=== PATIENT | male | born 1960 | race Hispanic/Latino ===

== ENCOUNTER 2024-07-15 09:26 | Inpatient (IN) | payer SELFPAY ==
[2024-07-15] MEDS ORDERED: ATORVASTATIN 20 MG TAB ONE (09:55)
[2024-07-15] MEDS ORDERED: ONDANSETRON 4 MG/2 ML VIAL ONE (09:55)
[2024-07-15] MEDS ORDERED: ASPIRIN 81 MG CHEWABLE TABLET ONE (09:55)
[2024-07-15] MEDS ORDERED: METOPROLOL TAR 25 MG TAB ONE (09:55)
[2024-07-15] MEDS ORDERED: MORPHINE 4 MG/ML SYR ONE (09:56)
[2024-07-15] MEDS ORDERED: FAMOTIDINE 20 MG/2 ML VIAL IV ONE (09:57)
[2024-07-15] MEDS ORDERED: ENOXAPARIN 100 MG/ML SYR SQ ONE (09:57)
[2024-07-15] MEDS ORDERED: NA CHLORIDE 0.9% 500 ML ONE (09:57)
[2024-07-15 10:06] LABS: PT Prothrombin Time 12.5 SECONDS (10-13.0); Protime INR 1.1
[2024-07-15 10:07] LABS: Absolute Eosinophils 0.1 K/uL (0-0.5); Absolute Lymphocytes (CBC) 1.2 K/uL (0.7-4.9); Absolute Monocytes 0.8 K/uL (0.1-1.3); Basophils % 0.5 % (0-1.3); Eosinophils % 0.6 % (0-4.4); Hematocrit 40.8 % (39.6-49.0); Hemoglobin 14.7 g/dL (13.6-17.9); Lymphocytes % 12.1 % (15.3-44.8); MCH 32.3 pg (27.0-35.0); MCHC 35.9 g/dL (32.0-36.0); MCV 90.1 fL (80-100); Monocytes % 7.5 % (3.3-12.3); Neutrophils % 79.3 % (41.7-73.7); Platelets 252 thou/uL (152-406); RBC Red Blood Cell Count 4.53 M/uL (4.33-5.43); Red Cell Distribution Width 12.3 % (12.1-15.2)
[2024-07-15 10:52] LABS: Albumin 3.8 g/dL (3.4-5.0); Albumin/Globulin Ratio 0.8 (1.1-1.8); Anion Gap 12.5 mEq/L (5.0-15.0); Bilirubin Direct 0.2 mg/dL (0-0.2); Bilirubin Indirect, Calculated 0.7 mg/dL (0.2-0.8); Bilirubin Total 0.9 mg/dL (0.2-1.0); Globulin 4.8 g/dL (2.3-3.5); Magnesium 2.1 mg/dL (1.6-2.4); Potassium 3.5 mEq/L (3.5-5.1); Protein, Total 8.6 g/dL (6.4-8.2); Troponin High Sensitivity 4.7 pg/mL (<58.9)
--- NOTE | 2024-07-15 11:35 | EDPHYS ---
Physician Documentation [facility] Name: Timothy Herrera Age: 63 yrs Sex: Male : 1960 Arrival Date: 07/15/2024 Time: 09:26 Bed 7 Private MD: LAURA Physician Yevgeniy Francisco HPI: 07/15 09:51 This 63 yrs old Male presents to ER via Ambulatory with complaints of High roma Blood Pressure, Chest Pain. 09:51 The patient has elevated blood pressure and discovered this at home. Onset: The roma symptoms/episode began/occurred suddenly. Modifying factors: The symptoms are aggravated by activity, The symptoms are alleviated by remaining still. Associated signs and symptoms: The patient has no apparent associated signs or symptoms. The patient has not experienced similar symptoms in the past. Historical: - Allergies: :44 PENICILLINS; ss - Home Meds: :44 None [Active]; ss - PMHx: :44 None; ss - PSHx: 09:44 Hernia repair; ss - Infectious Disease History:: Denies. - Social history:: Smoking status: Patient denies any tobacco usage or history of. ROS: 09:51 Constitutional: Negative for fever, chills, and weight loss, Eyes: Negative for injury, roma pain, redness, and discharge, ENT: Negative for injury, pain, and discharge, Neck: Negative for injury, pain, and swelling, Respiratory: Negative for shortness of breath, cough, wheezing, and pleuritic chest pain, Abdomen/GI: Negative for abdominal pain, nausea, vomiting, diarrhea, and constipation, Back: Negative for injury and pain, : Negative for injury, bleeding, discharge, and swelling, MS/Extremity: Negative for injury and deformity, Skin: Negative for injury, rash, and discoloration, Neuro: Negative for headache, weakness, numbness, tingling, and seizure, Psych: Negative for depression, anxiety, suicide ideation, homicidal ideation, and hallucinations, Allergy/Immunology: Negative for hives, rash, and allergies, Endocrine: Negative for neck swelling, polydipsia, polyuria, polyphagia, and marked weight changes, Hematologic/Lymphatic: Negative for swollen nodes, abnormal bleeding, and unusual bruising, 09:51 Cardiovascular: Positive for chest pain, of the chest, Exam: 09:51 Constitutional: This is a well developed, well nourished patient who is awake, alert, roma and in no acute distress. Head/Face: Normocephalic, atraumatic. Eyes: Pupils equal round and reactive to light, extra-ocular motions intact. Lids and lashes normal. Conjunctiva and sclera are non-icteric and not injected. Cornea within normal limits. Periorbital areas with no swelling, redness, or edema. ENT: Nares patent. No nasal discharge, no septal abnormalities noted. Tympanic membranes are normal and external auditory canals are clear. Oropharynx with no redness, swelling, or masses, exudates, or evidence of obstruction, uvula midline. Mucous membranes moist. Neck: Trachea midline, no thyromegaly or masses palpated, and no cervical lymphadenopathy. Supple, full range of motion without nuchal rigidity, or vertebral point tenderness. No Meningismus. Chest/axilla: Normal chest wall appearance and motion. Nontender with no deformity. No lesions are appreciated. Cardiovascular: Regular rate and rhythm with a normal S1 and S2. No gallops, murmurs, or rubs. Normal PMI, no JVD. No pulse deficits. Respiratory: Lungs have equal breath sounds bilaterally, clear to auscultation and percussion. No rales, rhonchi or wheezes noted. No increased work of breathing, no retractions or nasal flaring. Abdomen/GI: Soft, non-tender, with normal bowel sounds. No distension or tympany. No guarding or rebound. No evidence of tenderness throughout. Back: No spinal tenderness. No costovertebral tenderness. Full range of motion. Skin: Warm, dry with normal turgor. Normal color with no rashes, no lesions, and no evidence of cellulitis. MS/ Extremity: Pulses equal, no cyanosis. Neurovascular intact. Full, normal range of motion., bilateral aka Neuro: Awake and alert, GCS 15, oriented to person, place, time, and situation. Cranial nerves II-XII grossly intact. Motor strength 5/5 in all extremities. Sensory grossly intact. Cerebellar exam normal. Normal gait. Psych: Awake, alert, with orientation to person, place and time. Behavior, mood, and affect are within normal limits. 09:51 ECG was reviewed by the Attending Physician. 09:51 Musculoskeletal/extremity: ROM: no acute changes, Compartment Syndrome exam of affected extremity: is normal. DVT Exam: No signs of deep vein thrombosis. no pain, no swelling, no tenderness, negative Homans' sign noted on exam, no appreciated bluish discoloration, no erythema, no increased warmth, Vital Signs: 09:42 BP 157 / 91; Pulse 71; Resp 16; Pulse Ox 98% ; Weight 70.31 kg (M); Height 5 ft. 9 in. aa5 ; Pain 5/10; 09:50 Temp 97.8(TE); aa5 10:35 BP 167 / 91; Pulse 83; Resp 16 S; Pulse Ox 99% on R/A; aa5 09:42 Body Mass Index 22.89 (70.31 kg, 175.26 cm) aa5 09:42 Pain Scale: Adult aa5 [place] Coma Score: 09:51 Eye Response: spontaneous(4). Motor Response: obeys commands(6). Verbal Response: roma oriented(5). Total: 15. MDM: 09:31 Medical Screening Exam initiated roma 09:54 HEART Score: History: Moderately Suspicious (1), ECG: Non specific repolarization roma disturbance / LBTB / PM (1), Age: > 45 and < 65 years (1), Risk Factors: 1 or 2 risk factors (1), [Hypertension] [+ Family HX] Troponin: < or = 1 x Normal Limit (0). The patient was given aspirin in the Emergency Department. NORMA Risk Score: 1 - Recent [<24hrs] Severe Angina, TOTAL SCORE = 1. Data reviewed: vital signs, nurses notes, lab test result(s), EKG, radiologic studies, plain films. Consideration of Admission/Observation Patient was admitted/placed on observation. Escalation of care including admission/observation considered. I considered the following discharge prescriptions or medication management in the emergency department Medications were administered in the Emergency Department. See MAR. Independent interpretation of the following test(s) in the Emergency Department EKG: See my EKG interpretation above. 07/15 09:32 Order name: Basic Metabolic Panel; Complete Time: 11:11 [facility] 07/15 09:32 Order name: CBC with Diff; Complete Time: 10:28 [facility] 07/15 09:32 Order name: LFT's; Complete Time: 11:11 [facility] 07/15 09:32 Order name: Magnesium; Complete Time: 11:11 [facility] 07/15 09:32 Order name: NT PRO-BNP; Complete Time: 11:11 [facility] 07/15 09:32 Order name: PT-INR; Complete Time: 10:28 [facility] 07/15 09:32 Order name: Troponin HS; Complete Time: 11:11 [facility] 07/15 09:32 Order name: Lipase; Complete Time: 11:11 [facility] 07/15 09:32 Order name: Urinalysis w/ reflexes [facility] 07/15 10:00 Order name: Lipid Profile; Complete Time: 11:11 EDMS 07/15 12:08 Order name: Basic Metabolic Panel EDMS 07/15 12:08 Order name: Basic Metabolic Panel EDMS 07/15 12:08 Order name: Basic Metabolic Panel EDMS 07/15 12:08 Order name: CBC with Automated Diff EDMS 07/15 12:08 Order name: CBC with Automated Diff EDMS 07/15 12:08 Order name: CBC with Automated Diff EDMS 07/15 12:08 Order name: Troponin High Sensitivity EDMS 07/15 12:08 Order name: Troponin High Sensitivity EDMS 07/15 12:08 Order name: Troponin High Sensitivity EDMS 07/15 09:32 Order name: XRAY Chest (1 view) [facility] 07/15 12:08 Order name: Echo with Doppler EDNE 07/15 09:32 Order name: EKG; Complete Time: 09:33 [facility] 07/15 09:32 Order name: Cardiac monitoring; Complete Time: 09:45 [facility] 07/15 09:32 Order name: EKG - Nurse/Tech; Complete Time: 09:45 [facility] 07/15 09:32 Order name: IV Saline Lock; Complete Time: 10:25 [facility] 07/15 09:32 Order name: Labs collected and sent; Complete Time: 10:25 [facility] 07/15 09:32 Order name: O2 Per Protocol; Complete Time: 09:45 [facility] 07/15 09:32 Order name: O2 Sat Monitoring; Complete Time: 09:45 [facility] EC:51 Rate is 68 beats/min. Rhythm is regular. QRS [place] is Normal. SD interval is normal. QRS roma interval is normal. QT interval is normal. No Q waves. T waves are Normal. No ST changes noted. Clinical impression: NSR w/ Non-specific ST/T Changes and No evidence of ischemia. Interpreted by me. Reviewed by me. Administered Medications: 10:00 Drug: NS 0.9% IV 500 ml IV at bolus once; to be given as a bolus over 30 minutes Route: aa5 IV; Rate: bolus; Site: right antecubital; 10:30 Follow up: IV Status: Completed infusion; IV Intake: 500ml aa5 10:00 Drug: Famotidine IVP 20 mg IVP once; dilute with 10 mL 0.9% NaCl; give over 2 minutes aa5 Route: IVP; Site: right antecubital; 10:10 Follow up: Response: No adverse reaction aa5 10:00 Drug: Enoxaparin Sub-Q 1 mg/kg Sub-Q once Route: Sub-Q; Site: right lower abdomen; aa5 10:35 Follow up: Response: No adverse reaction aa5 10:00 Drug: morphine IVP or IV 2 mg IVP once over 4 mins Route: IVP; Infused Over: 4 mins; aa5 Site: right antecubital; 10:10 Follow up: Response: No adverse reaction aa5 10:00 Drug: morphine IVP or IV 2 mg IVP once over 4 mins Route: IVP; Infused Over: 4 mins; aa5 Site: right antecubital; 10:10 Follow up: Response: No adverse reaction aa5 10:00 Drug: Ondansetron IVP 4 mg IVP once; over 2 minutes Route: IVP; Site: right antecubital;aa5 10:10 Follow up: Response: No adverse reaction aa5 10:00 Drug: Atorvastatin PO 20 mg PO once Route: PO; aa5 10:46 Follow up: Response: No adverse reaction aa5 10:24 Not Given (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, awaree): aspirinchewable tablet 324 aa5 mg PO once; 81 mg tablets x 4 10:24 Not Given (HR currently 62, aware.): [id number] mg PO once aa5 Disposition Summary: 07/15/24 11:35 Hospitalization Ordered Notes: Hospitalization Status: Observation roma Location: Telemetry/MedSurg (observation) roma Condition: Fair roma Problem: new roma Symptoms: have improved roma Bed/Room Type: Standard roma Provider: Hernando Leal(07/15/24 11:41) db Room Assignment: [facility](07/15/24 16:09) ty Diagnosis - Essential (primary) hypertension roma - Chest pain, unspecified roma Forms: - Medication Reconciliation Form roma - SBAR form roma - Leadership Thank You Letter roma Signatures: Dispatcher [employer] EDMS Yevgeniy Francisco MD MD cha Calderon, Audri RN RN aa5 Alena Saenz RN RN ss Melody Knapp RN RN db Berhane Velazquez Corrections: (The following items were deleted from the chart) 10:00 09:49 LIPID PROFILE+C.LAB.BRZ ordered. [facility] EDNE 11:41 11:35 Ulisses Donohue cha 16:09 11:35 roma moreno
--- NOTE | 2024-07-15 11:35 | ER ---
Nurse's Notes [facility] Name: Timothy Herrera Age: 63 yrs Sex: Male : 1960 Arrival Date: 07/15/2024 Time: 09:26 Bed 7 Private MD: Diagnosis: Essential (primary) hypertension;Chest pain, unspecified Presentation: 07/15 09:42 Chief complaint: Patient states: Chest pressure that began this morning. Sent by urgent ss care for further evaluation. EKG completed at urgent care was reportedly, "normal" as well as BGL. Pt was also given 324 ASA just prior to arrival. Coronavirus screen: Client denies travel out of the [place] in the last 14 days. Ebola Screen: Patient denies exposure to infectious person. Patient denies travel to an Ebola-affected area in the 21 days before illness onset. Initial Sepsis Screen: Does the patient meet any 2 criteria? No. Patient's initial sepsis screen is negative. Does the patient have a suspected source of infection? No. Patient's initial sepsis screen is negative. Risk Assessment: Do you want to hurt yourself or someone else? Patient reports no desire to harm self or others. Onset of symptoms was July 15, 2024. 09:42 Method Of Arrival: Ambulatory 09:42 Acuity: DIVYA 3 09:42 Note reported blood pressure at urgent care was 242/141. ss Historical: - Allergies: 09:44 PENICILLINS; ss - Home Meds: 09:44 None [Active]; ss - PMHx: 09:44 None; ss - PSHx: 09:44 Hernia repair; ss - Infectious Disease History:: Denies. - Social history:: Smoking status: Patient denies any tobacco usage or history of. Screenin:50 [facility] ED Fall Risk Assessment (Adult) History of falling in the last 3 months, aa5 including since admission No falls in past 3 months (0 pts) Confusion or Disorientation No (0 pts) Intoxicated or Sedated No (0 pts) Impaired Gait No (0 pts) Mobility Assist Device Used No (0 pt) Altered Elimination No (0 pt) Score/Fall Risk Level 0 - 2 = Low Risk Oriented to surroundings, Maintained a safe environment, Educated pt \\T\\ family on fall prevention, incl call for assistance when getting out of bed, Assessed \\T\\ reinforced patient's understanding of fall precautions. Abuse screen: Denies threats or abuse. Nutritional screening: No deficits noted. Tuberculosis screening: No symptoms or risk factors identified. Assessment: 09:50 General: Appears uncomfortable, Behavior is calm, cooperative. Pain: Complains of pain aa5 in chest Pain does not radiate. Pain currently is 5 out of 10 on a pain scale. Quality of pain is described as pressure, Pain began today Is continuous. Neuro: Level of Consciousness is awake, alert, obeys commands, Oriented to person, place, time, situation. Cardiovascular: Heart tones S1 S2 present Rhythm is regular. Respiratory: Airway is patent Respiratory effort is even, unlabored, Respiratory pattern is regular, symmetrical, Breath sounds are clear bilaterally. GI: Abdomen is non-distended, Bowel sounds present X 4 quads. Abd is soft and non tender X 4 quads. Patient currently denies diarrhea, nausea, vomiting. : No signs and/or symptoms were reported regarding the genitourinary system. EENT: No signs and/or symptoms were reported regarding the EENT system. Derm: Skin is pink, warm \\T\\ dry. Musculoskeletal: Range of motion: intact in all extremities. 10:35 Reassessment: Patient is alert, oriented x 3, equal unlabored respirations, skin aa5 warm/dry/pink. Patient states feeling better. 10:53 Reassessment: x-ray at bedside . aa5 Vital Signs: 09:42 BP 157 / 91; Pulse 71; Resp 16; Pulse Ox 98% ; Weight 70.31 kg (M); Height 5 ft. 9 in. aa5 ; Pain 5/10; 09:50 Temp 97.8(TE); aa5 10:35 BP 167 / 91; Pulse 83; Resp 16 S; Pulse Ox 99% on R/A; aa5 09:42 Body Mass Index 22.89 (70.31 kg, 175.26 cm) aa5 09:42 Pain Scale: Adult aa5 [place] Coma Score: 09:51 Eye Response: spontaneous(4). Motor Response: obeys commands(6). Verbal Response: roma oriented(5). Total: 15. ED Course: 09:31 Patient arrived in ED. im 09:31 Yevgeniy Francisco MD is Attending Physician. roma 09:38 Miller, Myah, RN is Primary Nurse. aa5 09:44 Triage completed. ss 09:44 Arm band placed on right wrist. ss 09:50 Patient has correct armband on for positive identification. Placed in gown. Bed in low aa5 position. Call light in reach. Side rails up X 1. Adult w/ patient. Client placed on continuous cardiac and pulse oximetry monitoring. NIBP monitoring applied. personal support worker on. Pulse ox on. NIBP on. 09:55 Inserted saline lock: 20 gauge in right antecubital area, using aseptic technique. aa5 Flushed with 10 mL NS. 10:42 Patient maintains SpO2 saturation greater than 95% on room air. aa5 10:46 No provider procedures requiring assistance completed. aa5 10:59 XRAY Chest (1 view) In Process Unspecified. EDMS 11:34 Ulisses Donohue MD is Hospitalizing Provider. roma 11:41 Hernando Leal is Hospitalizing Provider. db 17:59 Provided Education on: ADMISSION INSTRUCTIONS. dd2 17:59 Patient admitted, IV remains in place. dd2 Administered Medications: 10:00 Drug: NS 0.9% IV 500 ml IV at bolus once; to be given as a bolus over 30 minutes Route: aa5 IV; Rate: bolus; Site: right antecubital; 10:30 Follow up: IV Status: Completed infusion; IV Intake: 500ml aa5 10:00 Drug: Famotidine IVP 20 mg IVP once; dilute with 10 mL 0.9% NaCl; give over 2 minutes aa5 Route: IVP; Site: right antecubital; 10:10 Follow up: Response: No adverse reaction aa5 10:00 Drug: Enoxaparin Sub-Q 1 mg/kg Sub-Q once Route: Sub-Q; Site: right lower abdomen; aa5 10:35 Follow up: Response: No adverse reaction aa5 10:00 Drug: morphine IVP or IV 2 mg IVP once over 4 mins Route: IVP; Infused Over: 4 mins; aa5 Site: right antecubital; 10:10 Follow up: Response: No adverse reaction aa5 10:00 Drug: morphine IVP or IV 2 mg IVP once over 4 mins Route: IVP; Infused Over: 4 mins; aa5 Site: right antecubital; 10:10 Follow up: Response: No adverse reaction aa5 10:00 Drug: Ondansetron IVP 4 mg IVP once; over 2 minutes Route: IVP; Site: right antecubital;aa5 10:10 Follow up: Response: No adverse reaction aa5 10:00 Drug: Atorvastatin PO 20 mg PO once Route: PO; aa5 10:46 Follow up: Response: No adverse reaction aa5 10:24 Not Given (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 aa5 Intake: 10:30 IV: 500ml; Total: 500ml. aa5 Outcome: 11:35 Decision to Hospitalize by Provider. [facility] 13:00 Admitted to ER Hold. Please see [facility] for further documentation. aa5 13:00 Instructed on the need for admit, Demonstrated understanding of instructions, 13:00 Condition: stable aa5 18:00 Patient left the ED. aa5 Signatures: Dispatcher [employer] EDMS Yevgeniy Francisco MD MD cha Calderon, Audri, RN RN aa Alena Saenz RN RN Melody Knapp RN RN Afshan Jackson DIANA, RN RN dd2 Corrections: (The following items were deleted from the chart) 10:47 10:00 Response: No adverse reaction aa5 aa5 15:41 09:42 BP 157 / 91; Pulse 71bpm; Resp 16bpm; Pulse Ox 98%; 92.99 kg; Height 5 ft. 9 in.; aa5 BMI: 30.2; Pain 5/10, Adult; ss 18:57 18:57 IV Status: Completed infusion; IV Intake: 500ml aa5 aa 19:06 17:59 Admitted to ER Hold. Please see [facility] for further documentation. dd2 aa5 19: 17:59 Condition: stable dd2 aa5 19:06 17:59 Instructed on the need for admit, Demonstrated understanding of instructions, dd2 aa5 19:06 18:08 Patient left the ED. aa5 aa
--- NOTE | 2024-07-15 11:41 | RAD REPORT ---
Procedure: Chest Single View HISTORY: Chest pain COMPARISON: none FINDINGS: The lungs appear clear of acute infiltrate. No significant pleural effusion noted. The heart is mildly enlarged. IMPRESSION: No acute abnormality is displayed.
--- NOTE | 2024-07-15 11:52 | EKG ---
Test Date: 2024-07-15 Test Time: 09:43:50 Ophthalmic Medical Technician: BRYANT MEASUREMENT RESULTS: Intervals: Rate: 68 AL: 148 QRSD: 88 QT: 392 QTc: 416 [place]: P: 73 AL: 148 QRS: 72 T: 70 INTERPRETIVE STATEMENTS: Normal sinus rhythm Septal infarct, age undetermined Abnormal ECG No previous ECG available for comparison Electronically Signed On 07-15-24 11:51:43 CDT by Bear Guerrero
[2024-07-15] MEDS ORDERED: ACETAMINOPHEN 325 MG TABLET PO PRN (12:02)
[2024-07-15] MEDS ORDERED: ONDANSETRON 4 MG/2 ML VIAL IV PRN (12:02)
[2024-07-15] MEDS ORDERED: MORPHINE 2 MG/ML SYR IV PRN (12:02)
[2024-07-15 12:15] LABS: Specific Gravity 1.006 (1.005-1.030); Urine Bilirubin NEGATIVE (Negative); Urine Blood Negative (Negative); Urine Clarity Clear (Clear); Urine Color Colorless (Yellow); Urine Glucose NEGATIVE (Negative); Urine Ketones NEGATIVE (Negative); Urine Microscopic Reflex YN NO UMIC; Urine Nitrite NEGATIVE (Negative); Urine Protein NEGATIVE (Negative); Urine Urobilinogen Normal (Normal)
--- NOTE | 2024-07-15 14:38 | P.HP ---
Certification for Inpatient Patient admitted to: Observation With expected LOS: <2 Midnights Patient will require the following post-hospital care: None Practitioner: I am a practitioner with admitting privileges, knowledge of patient current condition, hospital course, and medical plan of care. Services: Services provided to patient in accordance with Admission requirements found in Title 42 Section 412.3 of the Code of Federal Regulations Patient History Date of Service: 07/15/24 Reason for admission: Chest pain History of Present Illness: 63-year-old male with no known past medical history presents emergency department chief complaint of chest pain. He was working and developed pressure-like chest that lasted for about an hour with associated shortness of breath and lightheadedness. He does not routinely see a doctor, is a former smoker for many years. Has never seen a coat operator or had any further cardiac testing performed. Patient was evaluated in the emergency department his labs are significant for initial high sensitive troponin of 4.7 BNP of 91 chest x-ray was negative for acute findings. ED provider wishes to admit under observation for ACS rule out. Allergies Penicillins Allergy (Verified 07/15/24 12:55) UNK - Past Medical/Surgical History -: None -: None Psychosocial/ Personal History: Persian-speaking only - Social History Smoking Status: Former smoker Alcohol use: No CD- Drugs: No Caffeine use: Yes Place of Residence: Home Review of Systems 10-point ROS is otherwise unremarkable Respiratory: Shortness of Breath Cardiovascular: Chest Pain, Light Headedness Physical Examination - Physical Exam General: Alert, In no apparent distress, Oriented x3 HEENT: Atraumatic, PERRLA, EOMI Neck: Supple, 2+ carotid pulse no bruit Respiratory: Clear to auscultation bilaterally, Normal air movement Cardiovascular: Regular rate/rhythm, Normal S1 S2 Gastrointestinal: Normal bowel sounds, No tenderness Musculoskeletal: No tenderness Integumentary: No rashes Neurological: Normal gait, Normal speech, Normal strength at 5/5 x4 extr - Studies Laboratory Data (last 24 hrs) 07/15/24 07/15/24 07/15/24 09:51 09:51 09:51 WBC 10.00 Hgb 14.7 Hct 40.8 Plt Count 252 PT 12.5 INR 1.10 Sodium 133 L Potassium 3.5 BUN 15 Creatinine 0.84 Glucose 106 Magnesium 2.1 Total Bilirubin 0.9 AST 20 ALT 30 Alkaline Phosphatase 79 Triglycerides 141 Cholesterol 206 H HDL Cholesterol 52 Cholesterol/HDL Ratio 3.96 Lipase 39 07/15/24 09:48 WBC Hgb Hct Plt Count PT INR Sodium Potassium BUN Creatinine Glucose Magnesium Total Bilirubin AST ALT Alkaline Phosphatase Triglycerides Cancelled Cholesterol Cancelled HDL Cholesterol Cancelled Cholesterol/HDL Ratio Cancelled Lipase Assessment and Plan - Plan Assessment: Chest pain rule out ACS Plan: Chest pain rule out ACS Cardiology consulted UNDERWRITING DIRECTOR after midnight for possible stress test versus heart cath Trend troponins and monitor on telemetry Chest pain-free at this time Aspirin's, statin, as needed pain medications DVT PPX: Lovenox Code status: Full Discharge Plan: Home Plan to discharge in: 24 Hours - Advance Directives Does patient have a Living Will: No Does patient have a Durable POA for Healthcare: No - Code Status/Comfort Care Code Status Assessed: Yes (Full code) Critical Care: No Time Spent Managing Pts Care (In Minutes): 65
[2024-07-15 15:40] VITALS: BMI 22.8
[2024-07-15] MEDS: METOPROLOL TAR 25 MG TAB PO SCH (18:00)
[2024-07-15] MEDS: ATORVASTATIN 40 MG TAB PO SCH (21:13)
[2024-07-16 07:01] LABS: Absolute Basophils 0.1 K/uL (0-0.5); Absolute Eosinophils 0.2 K/uL (0-0.5); Absolute Lymphocytes (CBC) 1.7 K/uL (0.7-4.9); Absolute Monocytes 0.7 K/uL (0.1-1.3); Absolute Neutrophil 5.7 K/uL (1.8-8.0); Basophils % 0.6 % (0-1.3); Hematocrit 41.8 % (39.6-49.0); Lymphocytes % 20.4 % (15.3-44.8); MCH 32.6 pg (27.0-35.0); MCHC 35.8 g/dL (32.0-36.0); MCV 91.1 fL (80-100); MPV 8.3 fL (7.6-11.3); Monocytes % 8.8 % (3.3-12.3); Neutrophils % 68.2 % (41.7-73.7); Nucleated Red Blood Cells % 0.1 % (0-0); Platelets 239 thou/uL (152-406); RBC Red Blood Cell Count 4.59 M/uL (4.33-5.43); Red Cell Distribution Width 12.1 % (12.1-15.2)
[2024-07-16 07:33] LABS: Anion Gap 7.9 mEq/L (5.0-15.0); Potassium 3.9 mEq/L (3.5-5.1); Troponin High Sensitivity 4.6 pg/mL (<58.9)
[2024-07-16] MEDS: ENOXAPARIN 40 MG/0.4 ML SQ SCH (09:00)
[2024-07-16 09:22] LABS: Blood Morphology Comment NOT SEEN (NOT SEEN); Platelet Estimate ADEQ; White Blood Cell Scan OK (OK)
[2024-07-16] MEDS: ASPIRIN EC 81 MG TAB PO SCH (10:02)
[2024-07-16] MEDS ORDERED: HEPARIN 10,000 UNIT/10 ML VIAL IV ONE (11:20)
[2024-07-16] MEDS ORDERED: HEPA 1000U/500MLS 2,000 UNIT/1,000 ML BAG IV ONE (11:20)
[2024-07-16] MEDS ORDERED: LIDOCAINE 1% 20 ML MDV ONE (11:21)
[2024-07-16] MEDS ORDERED: ATROPINE SULF 1 MG/10 ML SYR IV ONE (11:21)
[2024-07-16] MEDS ORDERED: MIDAZOLAM HCL 2 MG/2 ML INJ ONE (11:21)
[2024-07-16] MEDS ORDERED: TICAGRELOR 90 MG TABLET PO ONE (11:22)
[2024-07-16] MEDS ORDERED: FENTANYL CITR 100 MCG/2 ML ONE (11:22)
[2024-07-16] MEDS ORDERED: ASPIRIN 325 MG TAB ONE (11:22)
[2024-07-16] MEDS ORDERED: CLOPIDOGREL 75 MG TABLET ONE (11:22)
[2024-07-16] MEDS ORDERED: HEPARIN 5000 UNIT/ML 1 ML VIAL ONE (11:22)
[2024-07-16] MEDS ORDERED: NITROGLYCERIN/D5W 50 MG/250 ML BTL IV ONE (11:23)
[2024-07-16] MEDS ORDERED: NA CHLORIDE 0.9% 500 ML ONE (11:24)
--- NOTE | 2024-07-16 11:54 | P.CNS ---
Date of Consult: 07/16/24 Chief Complaint: Chest pain History of Present Illness: Patient with no significant PMH, presented with chest pain that started suddenly, pressure in nature, lasted for few minutes while resting, no radiation, no palpitations, no syncope. Allergies Penicillins Allergy (Verified 07/15/24 12:55) UNK Home medications list reviewed: Yes Home Medications: NK [No Home Meds] 07/15/24 - Past Medical/Surgical History -: None -: None Psychosocial/ Personal History: Mongolian-speaking only - Social History Alcohol use: No CD- Drugs: No Caffeine use: Yes Place of Residence: Home Review of Systems 10-point ROS is otherwise unremarkable Physical Examination Temp Pulse Resp BP Pulse Ox 98.0 F 55 16 128/70 94 07/16/24 08:00 07/16/24 08:00 07/16/24 08:00 07/16/24 08:00 07/16/24 08:00 General: Alert, In no apparent distress HEENT: Atraumatic, PERRLA, Mucous membr. moist/pink, EOMI, Sclerae nonicteric Neck: Supple, 2+ carotid pulse no bruit, No LAD, Without JVD or thyroid abnormality Respiratory: Clear to auscultation bilaterally, Normal air movement Cardiovascular: Regular rate/rhythm, Normal S1 S2 Gastrointestinal: Normal bowel sounds, No tenderness Musculoskeletal: No tenderness Integumentary: No rashes Neurological: Normal gait, Normal speech, Normal tone, Normal affect Lymphatics: No axilla or inguinal lymphadenopathy - Problems (1) Chest pain Current Visit: Yes Status: Acute Plan: concern for unstable angina NPO for coronary angiogram ASA 81 mg daily Lipitor 40 mg daily Echo shows normal LV systolic function and normal sanchez motion. (2) HTN (hypertension) Current Visit: Yes Status: Acute Plan: lopressor 25 mg po BID Continue to monitor (3) HLD (hyperlipidemia) Current Visit: Yes Status: Acute Plan: lipitor 40 mg daily
--- NOTE | 2024-07-16 12:52 | ECHO ---
HEIGHT: 5 ft 9 in WEIGHT: 155 lb 0 oz DATE OF STUDY: 07/15/[address]: Hemant Dominguez NP 2-DIMENSIONAL: YES M.MODE: YES DOPPLER: YES COLOR FLOW: YES TDS: YES PORTABLE: YES DEFINITY: BUBBLE STUDY: DIAGNOSIS: CHEST PAIN CARDIAC HISTORY: CATHERIZATION: NO SURGERY: NO PROSTHETIC VALVE: NO PACEMAKER: NO MEASUREMENTS (cm) DIASTOLIC (NORMALS) SYSTOLIC (NORMALS) IVSd 1.1 (0.6-1.2) LA Diam 3.2 (1.9-4.0) LVEF 60-65% LVIDd 4.1 (3.5-5.7) LVIDs 2.8 (2.0-3.5) %FS 32% LVPWd 1.2 (0.6-1.2) Ao Diam 2.8 (2.0-3.7) 2 DIMENSIONAL ASSESSMENT: RIGHT ATRIUM: NORMAL LEFT ATRIUM: NORMAL RIGHT VENTRICLE: NORMAL LEFT VENTRICLE: NORMAL TRICUSPID VALVE: TRACE TRICUSPID REGURGITATION MITRAL VALVE: NORMAL PULMONIC VALVE: NORMAL AORTIC VALVE: NORMAL PERICARDIAL EFFUSION: NONE AORTIC ROOT: NORMAL LEFT VENTRICULAR WALL MOTION: NORMAL DOPPLER/COLOR FLOW: GRADE I DIASTOLIC DYSFUNCTION COMMENTS: 1. NORMAL LEFT VENTRICULAR SYSTOLIC FUNCTION, EJECTION FRACTION 60-65%, NORMAL WALL MOTION 2. GRADE I DIASTOLIC DYSFUNCTION TECHNOLOGIST: TOMAS LEVY
--- NOTE | 2024-07-16 15:35 | P.PN ---
Date of Service: 07/16/24 Subjective: No acute events overnight Went to [facility] today for coronary angiogram ROS: 10 point ROS as noted above, otherwise negative Physical exam GEN: Alert, oriented, NAD HEENT: Normal conjunctiva, sclera anicteric CV: Regular rate and rhythm, no edema Pulm: Nonlabored respirations on room air ABD: Soft, nontender, nondistended MSK: No joint tenderness Integumentary: No rashes Neuro: Normal speech, normal affect Vitals reviewed Assessment: Chest pain rule out ACS CAD status post stent to LAD Plan: Chest pain rule out ACS CAD status post stent to LAD Cardiology consulted Underwent coronary angiogram with stent to LAD today Continue DAPT, metoprolol, statin Echocardiogram with normal LVEF Continue to monitor on telemetry overnight DVT PPX: Lovenox Code status: Full Discharge Plan: Home Plan to discharge in: 24 Hours Time Spent Managing Pts Care (In Minutes): 35
[2024-07-16 16:18] VITALS: O2SAT 98
[2024-07-16] MEDS: CLOPIDOGREL 75 MG TABLET PO ONE (21:12)
[2024-07-16] MEDS: TICAGRELOR 90 MG TABLET PO SCH (21:13)
--- NOTE | 2024-07-16 22:45 | OP ---
Date of Procedure: 07/16/2024 Surgeon: Bear Guerrero Procedures Performed: 1. Selective coronary angiogram. 2. PCI of the LAD with Synergy 2.5 x 38 mm drug-eluting stent overlapped with proximal LAD with Syner gy 3.0 x 20 mm drug-eluting stent. 3. PTCA of diagonal 1. Indication For Procedure: Unstable angina. Complications: None. Estimated Blood Loss: Less than 50 cc. Access: Right radial, closed by TR band. Sedation Time: 40 minutes with 1 of Versed and 25 of fentanyl. Description Of Procedure: After risks, benefits, and alternatives were explained to the patient, the patient agreed to proceed with procedure and signed informed consent. The patient was brought back to the wharf labourer, prepped and draped in sterile fashion. Time-out was performed. Sedation was admini stered. Next, right radial access was obtained using ultrasound-guided micropuncture technique. Tig er 4 catheter was advanced over J-wire to the aortic root. Selective angiogram was done using same c atheter. After that, catheter was exchanged with an EBU3.5 mm guide. Heparin was administered. ACT was therapeutic. Next, run-through wire was passed across the LAD, second run-through wire was pass ed across the diagonal. PTCA of the diagonal was done with regular 2.0 mm balloon. Next, pre-dilate d the LAD lesions with an NC 2.5 mm balloon. After that, Synergy 2.5 x 38 mm drug-eluting stent was placed across the LAD that is overlapped with another Synergy 3.0 x 20 mm drug-eluting stent. Stents were postdilated with an NC 3.25 mm balloon. Final angiogram shows NORMA-3 flow. Wire was removed. Catheter was removed over a J-wire. Sheath was removed. TR band was applied. Hemostasis achieved. The patient was moved back to recovery in stable condition. Findings: 1. Left main normal. 2. LAD, mid diffuse 70% to 80% disease, status post PCI as above. Mid to distal diffuse disease brian ry. 3. Diagonal 1, small. 4. Diagonal 2, medium-size artery, 2 mm in size with ostial 70% to 80% disease. PTCA done as above. 5. Left circ; mild luminal irregularities. 6. RCA, 2.5 mm artery with proximal to mid mild luminal irregularities, then distal 60% to 70% diseas e and extend into the RPDA. Assessment: 1. Significant mid LAD disease, status post PCI with Synergy 3.0 x 20 overlapped with Synergy 2.5 x 3 8 mm drug-eluting stents. 2. Significant ostial to proximal diagonal 2 disease, PTCA was done. 3. Moderate to severe distal RCA disease, artery is too small. We will continue medical management f or that now and stress test in the future to see if it needs revascularization. Plan: 1. Aspirin 81 mg daily for life. 2. Brilinta 180 x1 was given in the wharf labourer, Brilinta 90 mg p.o. x1 to be given tonight with a load of 600 mg of Plavix, then continue Plavix 75 mg daily after. 3. Continue aggressive medical treatment for CAD. PRATT/MODL Voice ID: [id number] Report ID: [id number]
[2024-07-17] MEDS ORDERED: CHLORASEPTIC LOZENGES PO PRN (07:21)
[2024-07-17 07:47] LABS: Absolute Eosinophils 0.2 K/uL (0-0.5); Absolute Lymphocytes (CBC) 1.5 K/uL (0.7-4.9); Absolute Monocytes 0.7 K/uL (0.1-1.3); Absolute Neutrophil 7.2 K/uL (1.8-8.0); Basophils % 0.5 % (0-1.3); Eosinophils % 2.1 % (0-4.4); Hematocrit 42.7 % (39.6-49.0); Hemoglobin 15.4 g/dL (13.6-17.9); Lymphocytes % 15.9 % (15.3-44.8); MCH 32.4 pg (27.0-35.0); MCHC 36.1 g/dL (32.0-36.0); MCV 89.8 fL (80-100); MPV 7.5 fL (7.6-11.3); Monocytes % 7.7 % (3.3-12.3); Neutrophils % 73.8 % (41.7-73.7); Nucleated Red Blood Cells % 0.1 % (0-0); Platelets 274 thou/uL (152-406); RBC Red Blood Cell Count 4.75 M/uL (4.33-5.43); Red Cell Distribution Width 12.5 % (12.1-15.2)
[2024-07-17 08:01] LABS: Anion Gap 11.8 mEq/L (5.0-15.0); Potassium 3.8 mEq/L (3.5-5.1)
[2024-07-17] MEDS: POTASSIUM CL SA 10 MEQ TAB PO ONE (08:07)
--- NOTE | 2024-07-17 08:21 | P.DS ---
Admission Date: 07/16/24 Discharge Date: 07/17/24 Disposition: ROUTINE DISCHARGE Discharge Condition: GOOD Reason for Admission: Chest pain Brief History of Present Illness: 63-year-old male with no known past medical history presents emergency department chief complaint of chest pain. He was working and developed pressure-like chest that lasted for about an hour with associated shortness of breath and lightheadedness. He does not routinely see a doctor, is a former smoker for many years. Has never seen a cane feeder or had any further cardiac testing performed. Patient was evaluated in the emergency department his labs are significant for initial high sensitive troponin of 4.7 BNP of 91 chest x-ray was negative for acute findings. ED provider wishes to admit under observation for ACS rule out. Hospital Course: Assessment: Chest pain rule out ACS CAD status post stent to LAD 1. Significant mid LAD disease, status post PCI with Synergy 3.0 x 20 overlapped with Synergy 2.5 x 38 mm drug-eluting stents. 2. Significant ostial to proximal diagonal 2 disease, PTCA was done. 3. Moderate to severe distal RCA disease, artery is too small. We will continue medical management for that now and stress test in the future to see if it needs revascularization. Patient was admitted to the hospital for chest pain. He underwent coronary angiogram which showed the above findings. He did have 1 stent placed in his LAD. He has been loaded with Plavix, at home he will need to continue aspirin, Plavix, atorvastatin and metoprolol until otherwise instructed by cardiology. He was informed he needs to establish himself with a primary care doctor and follow-up with cardiology in the next 1 to 2 weeks. Cardiology plans for outpatient stress test in the future to determine if there is further interventions that need to take place Vital Signs/Physical Exam: Temp Pulse Resp BP Pulse Ox 99 F 60 16 117/64 96 07/17/24 04:00 07/17/24 05:12 07/17/24 04:00 07/17/24 05:12 07/17/24 04:00 General: Alert, In no apparent distress, Oriented x3 HEENT: Atraumatic, PERRLA Neck: Supple, JVD not distended Respiratory: Clear to auscultation bilaterally, Normal air movement Cardiovascular: Regular rate/rhythm, Normal S1 S2 Gastrointestinal: Normal bowel sounds, No tenderness Musculoskeletal: No tenderness Integumentary: No rashes Neurological: Normal speech, Normal affect Laboratory Data at Discharge: WBC 9.70 thou/uL (4.3-10.9) 07/17/24 Unknown Hgb 15.4 g/dL (13.6-17.9) 07/17/24 Unknown Hct 42.7 % (39.6-49.0) 07/17/24 Unknown Plt Count 274 thou/uL (152-406) 07/17/24 Unknown PT 12.5 SECONDS (10-13.0) 07/15/24 09:51 INR 1.10 07/15/24 09:51 Sodium 134 mEq/L (136-145) L 07/17/24 Unknown Potassium 3.8 mEq/L (3.5-5.1) 07/17/24 Unknown BUN 19 mg/dL (7-18) H 07/17/24 Unknown Creatinine 0.88 mg/dL (0.70-1.30) 07/17/24 Unknown Glucose 110 mg/dL (74-106) H 07/17/24 Unknown Magnesium 2.1 mg/dL (1.6-2.4) 07/15/24 09:51 Total Bilirubin 0.9 mg/dL (0.2-1.0) 07/15/24 09:51 AST 20 U/L (15-37) 07/15/24 09:51 ALT 30 U/L (16-61) 07/15/24 09:51 Alkaline Phosphatase 79 U/L (45-117) 07/15/24 09:51 Triglycerides 141 mg/dL (<150) 07/15/24 09:51 Cholesterol 206 mg/dL (<200) H 07/15/24 09:51 HDL Cholesterol 52 mg/dL (40-60) 07/15/24 09:51 Cholesterol/HDL Ratio 3.96 07/15/24 09:51 Lipase 39 U/L (13-75) 07/15/24 09:51 Home Medications: Atorvastatin Calcium [Lipitor] 40 mg PO BEDTIME #60 tab 07/17/24 Clopidogrel Bisulfate [Plavix*] 75 mg PO DAILY #90 tab 07/17/24 Metoprolol Tartrate [Lopressor*] 25 mg PO BID 6AM 6PM #60 tab 07/17/24 New Medications: Atorvastatin Calcium [Lipitor] 40 mg PO BEDTIME #60 tab Metoprolol Tartrate [Lopressor*] 25 mg PO BID 6AM 6PM #60 tab Clopidogrel Bisulfate [Plavix*] 75 mg PO DAILY #90 tab Physician Discharge Instructions: 1. Significant mid LAD disease, status post PCI with Synergy 3.0 x 20 overlapped with Synergy 2.5 x 38 mm drug-eluting stents. 2. Significant ostial to proximal diagonal 2 disease, PTCA was done. 3. Moderate to severe distal RCA disease, artery is too small. We will continue medical management for that now and stress test in the future to see if it needs revascularization. Patient was admitted to the hospital for chest pain. He underwent coronary angiogram which showed the above findings. He did have 1 stent placed in his LAD. He has been loaded with Plavix, at home he will need to continue aspirin, Plavix, atorvastatin and metoprolol until otherwise instructed by cardiology. He was informed he needs to establish himself with a primary care doctor and follow-up with cardiology in the next 1 to 2 weeks. Cardiology plans for outpatient stress test in the future to determine if there is further interventions that need to take place Diet: AHA Activity: Ad ty Followup: Bear Guerrero MD [ACTIVE - CAN ADMIT] - NONE,NONE [Primary Care Provider] - 1-2 Weeks Time spent managing pt's care (in minutes): 47
[2024-07-17 08:43] VITALS: BP 131/78; TEMP 98.8
[2024-07-17] MEDS: CLOPIDOGREL 75 MG TABLET PO SCH (10:31)
== END 2024-07-17 15:21 | disposition home or self-care (01) | DRG 322 ==
LOC: ER 09:26 → ERHOLD 12:02 → 2ND 18:03 → OBSVTOIN 07-16 15:28
PROVIDERS: ADMIT Internal Medicine; ATTEND Internal Medicine
PROC: 027035Z Dilation of Coronary Artery, One Artery with Two Drug-eluting Intraluminal Devices, Percutaneous Approach (ICD-10-PCS; principal; 2024-07-16)
PROC: 4A023N7 Measurement of Cardiac Sampling and Pressure, Left Heart, Percutaneous Approach (ICD-10-PCS; 2024-07-16)
PROC: B2111ZZ Fluoroscopy of Multiple Coronary Arteries using Low Osmolar Contrast (ICD-10-PCS; 2024-07-16)
DX: I25.110 Atherosclerotic heart disease of native coronary artery with unstable angina pectoris (principal); I10 Essential (primary) hypertension; E78.5 Hyperlipidemia, unspecified; Z88.0 Allergy status to penicillin; Z79.02 Long term (current) use of antithrombotics/antiplatelets; Z87.891 Personal history of nicotine dependence; Z79.899 Other long term (current) drug therapy
CPT/HCPCS: 36415; 71045; 76937; 80048; 80061; 80076; 81003; 83690; 83735; 83880; 84484; 85025; 85347; 85610; 92928; 93005; 93306; 93454; 96372; 96374; 96375; 99152; 99153; 99285; C1725; C1893; G0378; J0461; J1644; J1650; J2003; J2250; J2405; J3010; J7040; Q9967